=== PATIENT | female | born 1970 | race Hispanic/Latino ===

== ENCOUNTER 2016-11-05 06:22 | Observation (INO) | payer OTHER ==
[2016-11-05 06:33] VITALS: BMI 20.7
[2016-11-05] MEDS ORDERED: ePHEDrine 50 mg/ml Inj ONE (07:10)
[2016-11-05] MEDS ORDERED: Midazolam 2 MG/2 ML VIAL ONE (07:10)
[2016-11-05] MEDS ORDERED: Propofol 10 mg/ml Inj (20 ML) ONE (07:10)
[2016-11-05] MEDS ORDERED: Succinylcholine 200 mg/10 ml Inj IV ONE (07:11)
[2016-11-05] MEDS ORDERED: Rocuronium 10 mg/ml (5 ml) ONE (07:11)
[2016-11-05 07:45] LABS: BASO % 0.5 % (0.0-2.0); EOS # 0.3 K/uL (0.0-0.7); EOS % 3.7 % (0.0-4.0); HEMATOCRIT 37.6 % (34.0-47.0); LYMPH # 2.6 K/uL (1.0-4.3); LYMPH % 32.5 % (20.0-40.0); MEAN CELL VOLUME 93.7 fl (81.0-99.0); MEAN CORPUSCULAR HEMOGLOBIN 31.2 pg (27.0-31.0); MEAN CORPUSCULAR HGB CONC 33.3 g/dL (33.0-37.0); MEAN PLATELET VOLUME 8.7 fl (7.2-11.7); MONO # 0.6 K/uL (0.0-0.8); MONO % 8.1 % (0.0-10.0); NEUT # 4.4 K/uL (1.8-7.0); NEUT % 55.2 % (50.0-75.0); NRBC % 0.1 % (0.0-0.0); RED CELL DISTRIBUTION WIDTH 12.9 % (11.5-14.5); WHITE BLOOD COUNT 7.9 K/uL (4.8-10.8)
[2016-11-05] MEDS ORDERED: Lactated Ringer's 1,000 ML IV ONE ×3 (08:53→12:25)
[2016-11-05] MEDS ORDERED: Dexamethasone 4 mg/1 ml ONE (09:48)
[2016-11-05] MEDS ORDERED: Desflurane Inhalation Anesthetic Liq (240 ml) ONE (09:48)
[2016-11-05] MEDS ORDERED: Neostigmine Methylsulfate 3mg/3ml Syringe IV ONE (09:56)
[2016-11-05] MEDS ORDERED: Bupivacaine 0.5% 50 ML IJ ONE (10:08)
[2016-11-05] MEDS ORDERED: Silver Nitrate Topical - Stick TOP ONE (10:10)
[2016-11-05] MEDS ORDERED: HYDROmorphone 0.5 mg/0.5 ml ISec IVP PRN ×2 (10:32→11:10)
[2016-11-05] MEDS ORDERED: Lactated Ringer's 1,000 ML IV SCH ×2 (10:32→11:06)
[2016-11-05] MEDS: Oxycodone/Acetaminophen 5/325 mg Tab PO PRN ×2 (16:54→21:40)
[2016-11-06 08:13] VITALS: BP 104/67; PULSE 86; RESP 20; O2SAT 98
[2016-11-06 08:48] VITALS: TEMP 98.8
--- NOTE | 2016-11-09 12:28 | OP ---
PROCEDURE DATE: 11/05/2016 SURGEON: Phi Sandoval MD. APPAREL CUTTER: Farhan Barton MD. PROCEDURE PERFORMED: Excision of abdominal and retroperitoneal endometriosis involving the large bow el and retroperitoneal space. PREOPERATIVE DIAGNOSIS: Endometriosis, abdominal pain. POSTOPERATIVE DIAGNOSIS: Endometriosis, abdominal pain. ANESTHESIA: General. ANESTHESIOLOGIST: Dr. Beckwith. ESTIMATED BLOOD LOSS: 15 mL. SPECIMEN SENT: Retroperitoneal, amber-iliac and rectal mass. BRIEF HISTORY: This is a 46-year-old woman who was brought to the operating room by Dr. Farhan Jimenez i for abdominal pain from endometriosis. He already initiated the robotic procedure when he asked me to enter the operating room to evaluate this lesion (separate dictation Dr. Farhan Barton). The les ion involved the area at the level of the left iliac artery extending to the rectal wall. I took ove r the robotic instrument, and using blunt and sharp dissection, the lesion was dissected at the level of the iliac artery posteriorly into retroperitoneal space. Meticulous attention to hemostasis was achieved with electrocautery. The lesion was then developed laterally into the retroperitoneal spac e and to the level of the sigmoid colon. The area in the sigmoid wall was dissected in a similar fas hion, and due to the thickness of the lesion, further dissection into the retroperitoneum was necessa ry in order to completely excise this lesion. Once the lesion was excised, it was appropriately moody ed and sent to pathology as a separate specimen. The area in question was examined, and hemostasis w as deemed adequate. The operation was then turned over to Dr. Farhan Barton (separate dictation Dr. Barton). Phi Sandoval MD cc: [id number] TT: 11/09/2016 12:27:15 jn
== END 2016-11-06 10:14 | disposition home or self-care (01) ==
LOC: H.OPSURG 06:22 → H.ERHOLD 11:06 → H.MEDSURG1 12:49
PROVIDERS: ADMIT Obstetrics & Gynecology Reproductive Endocrinology; ATTEND Obstetrics & Gynecology Reproductive Endocrinology
DX: N80.3 Endometriosis of pelvic peritoneum (principal); N80.5 Endometriosis of intestine

== ENCOUNTER 2017-05-04 09:03 | Inpatient (IN) | payer OTHER ==
[2017-05-04 11:32] LABS: MEAN CELL VOLUME 92.2 fl (81.0-99.0); MEAN CORPUSCULAR HGB CONC 33.7 g/dL (33.0-37.0); RED CELL DISTRIBUTION WIDTH 12.3 % (11.5-14.5); WHITE BLOOD COUNT 12.6 K/uL (4.8-10.8)
[2017-05-04] MEDS ORDERED: Bupivacaine 0.5% Inj(30mL) ONE (14:05)
[2017-05-04] MEDS ORDERED: ceFAZolin IV 1 gm in Dextrose 1 GM/50 ML BAG IVPB ONE ×2 (14:05→15:18)
[2017-05-04] MEDS ORDERED: Propofol 10 mg/ml Inj (20 ML) ONE (14:16)
[2017-05-04] MEDS ORDERED: Midazolam 2 MG/2 ML VIAL ONE (14:16)
[2017-05-04] MEDS ORDERED: ePHEDrine 50 mg/ml Inj ONE (14:17)
[2017-05-04] MEDS ORDERED: Succinylcholine 200 mg/10 ml Inj IV ONE (14:17)
[2017-05-04] MEDS ORDERED: Rocuronium 10 mg/ml (5 ml) ONE (14:17)
[2017-05-04] MEDS ORDERED: Lactated Ringer's 1,000 ML IV ONE ×3 (15:00→18:34)
[2017-05-04] MEDS ORDERED: Sodium Chloride 0.9% 1,000 ML IV ONE (15:05)
[2017-05-04] MEDS ORDERED: Chlorhexidine Gluconate 1 APPL/PKT TP ONE (15:26)
[2017-05-04] MEDS ORDERED: Bupivacaine 0.5% 50 ML IJ ONE ×2 (15:26)
[2017-05-04] MEDS ORDERED: Dexamethasone 4 mg/1 ml ONE (15:30)
[2017-05-04] MEDS ORDERED: Neostigmine Methylsulfate 3mg/3ml Syringe IV ONE (15:45)
[2017-05-04] MEDS ORDERED: Sevoflurane - Inhalation Anesthetic Liq (250 ml) ONE (16:02)
[2017-05-04] MEDS ORDERED: Neostigmine Methylsulfate 2 MG/2 ML ML IV ONE (16:14)
[2017-05-04] MEDS: HYDROmorphone 0.5 mg/0.5 ml ISec IVP PRN ×4 (16:45→17:39)
[2017-05-04] MEDS ORDERED: Oxycodone/Acetaminophen 5/325 mg Tab PO PRN ×2 (17:29→19:38)
[2017-05-04] MEDS ORDERED: Lactated Ringer's 1,000 ML IV SCH (18:30)
[2017-05-04 22:58] VITALS: RESP 20
[2017-05-05 12:24] VITALS: BP 117/80; PULSE 67; TEMP 98.7
[2017-05-05 16:07] VITALS: O2SAT 99
--- NOTE | 2017-05-11 13:16 | OP ---
PROCEDURE DATE: 05/04/2017 PREOPERATIVE DIAGNOSES: Pelvic pain, dysmenorrhea, dyspareunia, rule out endometriosis and a history of endometriosis. POSTOPERATIVE DIAGNOSES: Stage II endometriosis, pelvic pain, dysmenorrhea, dyspareunia, rule out endometriosis and a history of endometriosis. PROCEDURE PERFORMED: Ablation of endometriosis, cystoscopy, hysteroscopy, bilateral ureteral catheterization and injection of dye. SURGEON: Farhan Barton MD. MARKET DEVELOPMENT TRAINER: Assisted by Phi Sandoval MD. TYPE OF ANESTHESIA: General endotracheal. ANESTHESIA ADMINISTERED BY: Jose Vera MD. INDICATION OF THE PROCEDURE: The patient is a 47-year-old female with a persistent history of pelvic pain, dysmenorrhea and dyspareunia. She was evaluated and presented symptoms suggestive of a recurrence of endometriosis. Prior to the surgery, she was counseled with regards to the risks and benefits of the procedure. She was taken to the OR and the procedure was started. DESCRIPTION OF PROCEDURE: After adequate anesthesia was obtained, the patient was placed in the dorsal lithotomy position. She was prepped and draped. The surgeons were gowned and gloved. At this point, attention was in the vaginal area where under direct visualization, a cystoscope was inserted into the bladder. The bladder appeared to be normal. Both ureters, ureteral ostia were in the normal anatomical positions. The left ureter was then catheterized using an open-ended catheter to the distal ureter and 5 mL of IC-Green were injected. Attention was on the right ureter where it was catheterized all the way to the distal ureter and 5 mL of IC-Green were injected. The catheters were removed and a pancystoscopy was performed revealing absence of tumor, lesions or any area of bleeding. At this point, a Clayton was placed in the bladder. Attention was in the vaginal area where a speculum was placed in the vagina. The anterior lip of the cervix was grasped and the cervix was gently dilated. A hysteroscopy was performed revealing the presence of a normal cavity. At this point, the surgeons were re-gowned and re-gloved, attention was on the abdomen where an incision was made utilizing the open laparoscopy technique and the abdominal cavity was entered in a blunt fashion. A cannula was inserted and the abdomen was insufflated. Under direct visualization, 2 additional trocars were inserted, left upper quadrant and right upper quadrant. The da Elder Xi robot was then docked and the procedure was commenced. There appeared to be some erythema with areas suggestive of endometriosis in the pelvis, both in the left pelvic sidewall and the right pelvic sidewall and the posterior aspect of the uterus. A progressive peritoneal destruction was performed utilizing energy, first on the left hand side where the peritoneum was carefully destroyed both on the left side starting at the top of the right below the utero-ovarian vessels and in the pelvic fossa all the way down to the uterosacral ligaments. Extreme care was made to avoid the ureters by utilizing fluorescent technology and visualizing the uterus in a perfect condition. At this point, again the peritoneum was destroyed in the back part of the uterus and the posterior cul-de-sac, again with extreme care to avoid the bowel as well as the ureters. Attention was on the right side of the pelvis where again a full right pelvic sidewall peritoneal destruction and ablation of endometriosis was performed with extreme care in multiple areas with great care to avoid the ureter which was constantly being a highlighter utilizing fluorescence. At this point, after a full ablation was performed, the pelvis was bluntly irrigated. Both ureters were visualized utilizing fluorescence, appeared to be in excellent condition. The da Elder robot was undocked. The abdomen was desufflated. The instruments were removed. The incisions were closed in layers utilizing PDS for the fascia and 4-0 Monocryl for the skin. At the end of the procedure, all tapes and instruments counts were correct. The patient tolerated the procedure well and was taken to the recovery room in excellent condition. Farhan Barton MD
== END 2017-05-05 13:15 | disposition home or self-care (01) | DRG 743 ==
LOC: H.OPSURG 09:03 → H.PEDS 18:12
PROVIDERS: ADMIT Obstetrics & Gynecology Reproductive Endocrinology; ATTEND Obstetrics & Gynecology Reproductive Endocrinology
PROC: 0U5B8ZZ Destruction of Endometrium, Via Natural or Artificial Opening Endoscopic (ICD-10-PCS; principal; 2017-05-04 13:45)
PROC: 0T788DZ Dilation of Bilateral Ureters with Intraluminal Device, Via Natural or Artificial Opening Endoscopic (ICD-10-PCS; 2017-05-04 13:45)
PROC: 8E0W4CZ Robotic Assisted Procedure of Trunk Region, Percutaneous Endoscopic Approach (ICD-10-PCS; 2017-05-04 13:45)
DX: N80.3 Endometriosis of pelvic peritoneum (principal); N94.10 Unspecified dyspareunia; N94.6 Dysmenorrhea, unspecified